=== PATIENT | female | born 1970 | race Caucasian/White ===

== ENCOUNTER 2020-11-26 08:48 | Emergency (ER) | payer SELFPAY ==
[2020-11-26] MEDS ORDERED: BENZOCAINE 14% W/TETRACAINE 20 GM CAN TOP ONE (09:00)
--- NOTE | 2020-11-26 09:03 | ED.PDOC ---
History of Present Illness - General Chief Complaint: Dental/Mouth Stated Complaint: Lower left dental abcess and pain Time Seen by Provider: 11/26/20 08:56 - History of Present Illness Allergies/Adverse Reactions: Allergies NO KNOWN ALLERGY Allergy (Verified 11/26/20 08:58) Home Medications: Ambulatory Orders Amoxicillin & Pot Clavulanate [Augmentin Tab] 875 mg PO BID #20 tab 11/26/20 Ibuprofen 800 mg PO TID PRN #30 tab 11/26/20 Departure - Departure Clinical Impression: Dental caries Time of Disposition: 09:02 Disposition: Discharge to Home or Self Care Departure Forms: ED Discharge - Pt. Copy, Patient Portal Self Enrollment Instructions: DI for Mouth Pain, Dental Pain (DC), Tooth Decay, Adult (DC) Diet: resume usual diet Activity: increase activity as tolerated Prescriptions: Amoxicillin & Pot Clavulanate [Augmentin Tab] 875 mg PO BID #20 tab Ibuprofen 800 mg PO TID PRN #30 tab PRN Reason: Pain Home Medications: Ambulatory Orders Amoxicillin & Pot Clavulanate [Augmentin Tab] 875 mg PO BID #20 tab 11/26/20 Ibuprofen 800 mg PO TID PRN #30 tab 11/26/20
[2020-11-26 09:07] VITALS: BP 152/84; TEMP 98.2; O2SAT 100
== END 2020-11-26 09:10 | disposition home or self-care (01) ==
LOC: ER 08:48
DX: K02.9 Dental caries, unspecified (principal)